=== PATIENT | female | born 1940 | race Caucasian/White ===

== ENCOUNTER 2018-10-04 07:37 | Day surgery (SDC) ==
[2018-10-04] MEDS: BETADINE OPTH PREP OP PRN ×2 (07:55→08:33)
[2018-10-04] MEDS: TETRACAINE 0.5% UNIT-DOSE OP PRN ×2 (07:55→08:33)
[2018-10-04] MEDS: CYCLOGYL 2% OPTH OP PRN ×3 (07:56→08:06)
[2018-10-04] MEDS ORDERED: LIDOCAINE 1% 20 ML MDV ID STA (07:59)
[2018-10-04] MEDS ORDERED: ZOFRAN 4 MG/2 ML IVP ONE (07:59)
[2018-10-04] MEDS ORDERED: BRIMONIDINE TARTRATE 0.2% OPTH SOL OP PRN (07:59)
[2018-10-04] MEDS: BSS WITH EPINEPHRINE OP ONE ×2 (08:33→08:45)
[2018-10-04] MEDS ORDERED: VERSED ONE (08:35)
[2018-10-04] MEDS ORDERED: SUBLIMAZE ONE (08:35)
[2018-10-04] MEDS ORDERED: ZOFRAN 4 MG/2 ML ONE (08:35)
[2018-10-04] MEDS: DEX-MOXI-KETOR OPTH INJ 1/0.5/0.4 MG/ML IO ONE ×2 (08:36→08:45)
[2018-10-04] MEDS: LIDOCAINE 1%/PHENYLEPHRINE 1.5% BSS (SURGERY) INTRAOCULA ONE ×2 (08:36→08:45)
[2018-10-04 10:49] VITALS: TEMP 98.3
[2018-10-05 10:50] VITALS: BP 124/66
== END 2018-10-04 09:55 | disposition home or self-care (01) ==
LOC: SURG 07:37
PROVIDERS: ATTEND Ophthalmology
DX: H25.812 Combined forms of age-related cataract, left eye (principal)